=== PATIENT | male | born 2005 | race Caucasian/White ===

== ENCOUNTER 2025-03-18 06:42 | Emergency (ER) | payer OTHER, SELFPAY ==
[2025-03-18 06:53] VITALS: BP 136/92; PULSE 112; RESP 20; TEMP 36.6; O2SAT 100; BMI 22.2
--- NOTE | 2025-03-18 07:12 | ED.GENADULT ---
HPI - General Adult General Chief complaint: Extremity Pain/Injury, Upper Stated complaint: Right index finger injury Time Seen by Provider: 03/18/25 07:12 History of Present Illness HPI narrative: Patient c/o right 2nd digit injury at 2130 last night. Patient shut his finger in a door. Patient has bruising under nail and swelling. 20-year-old young man presenting to the emergency department following an injury to his right index finger. Shut his finger in a heavy door. He does not think it is broken. Has some bleeding underneath the nail. Has experienced this before. Describes poking holes in at by medical care provider which improved his symptoms. Review of Systems Status of ROS: Reports: 6 or more systems reviewed and unremarkable except as noted in History and below PFSH [facility] Social History Smoking Status: Never smoker Do you use any of these nicotine containing products: None Second hand tobacco smoke exposure: No How often do you have a drink containing alcohol: 4 or more times a week How many standard drinks containing alcohol do you have on a typical day: 1 or 2 How often do you have six or more drinks on one occasion: Weekly AUDIT-C Alcohol total score: 7 Non-prescribed substance use: denies use service: No Exam Narrative: Exam Narrative: Very pleasant. Calm. Examination of the right index finger shows proximal nearly half with subungual hematoma. No injury to paronychia. Otherwise does not appear to have injury or deformity to his finger. Const: Vital Signs, click to edit/add: Vital Signs - 24 hr 03/18/25 06:53 Temperature 97.9 F Pulse Rate [Right Pulse Oximeter] 112 H Respiratory Rate 20 Blood Pressure [Ri ght Upper Arm] 136/92 H Pulse Oximetry 100 Oxygen Delivery Me thod Room Air Documenting provider has reviewed patient's vital signs: yes Course Vital Signs Vital signs: Initial Vital Signs Temperature 97.9 F 03/18/25 06:53 Temperature Source Temporal Artery Scan 03/18/25 06:53 Pulse Rate 112 H 03/18/25 06:53 Respiratory Rate 20 03/18/25 06:53 Blood Pressure 136/92 H 03/18/25 06:53 Blood Pressure Mean 106 H 03/18/25 06:53 Blood Pressure Position Sitting 03/18/25 06:53 Pulse Oximetry 100 03/18/25 06:53 Oxygen Delivery Method Room Air 03/18/25 06:53 Vital Signs Temperature 97.9 F 03/18/25 06:53 Pulse Rate 112 H 03/18/25 06:53 Respiratory Rate 03/18/25 06:53 Blood Pressure 136/92 H 03/18/25 06:53 Pulse Oximetry 100 03/18/25 06:53 Oxygen Delivery Method Room Air 03/18/25 06:53 Temperature 97.9 F 03/18/25 06:53 Pulse Rate 112 H 03/18/25 06:53 Respiratory Rate 03/18/25 06:53 Blood Pressure 136/92 H 03/18/25 06:53 Pulse Oximetry 100 03/18/25 06:53 Oxygen Delivery Method Room Air 03/18/25 06:53 Medical Decision Making MDM Narrative Medical decision making narrative: It does appear that has a subungual hematoma. I do not think that there is underlying fracture given lateral pressure to the finger not particular exacerbating pain and lack of palmar bruising. Did offer x-rays but this was declined/deferred. Discussed trephinating. Return with Bovie and easily placed I singular hole in the ulnar side nail resulting in insignificant amount of subacute expressed. Looks like it drained most of the hematoma. Du became a little woozy with all of this. Is not inclined toward interacting with blood. Otherwise tolerated well. Placed fluffed up gauze dressing to facilitate continued drainage if needed. See patient discharge plan for further discussion Ibuprofen, acetaminophen, elevation for comfort. Can probably swap dressing out for Band-Aid later today. Likely will lose this nail but should grow back normally. Trim away as needed. Discharge Plan Discharge Clinical Impression: Subungual hematoma, Crush injury to finger Patient Disposition: Home, Self-Care Condition: Improved Additional Instructions: Ibuprofen, acetaminophen, elevation for comfort. Can probably swap dressing out for Band-Aid later today. Likely will lose this nail but should grow back normally. Trim away as needed. Stand Alone Forms: [facility] Info Instructions
== END 2025-03-18 08:08 | disposition home or self-care (01) ==
PROVIDERS: Emergency Provider Family Medicine
DX: S67.190A Crushing injury of right index finger, initial encounter (principal); W23.0XXA Caught, crushed, jammed, or pinched between moving objects, initial encounter
CPT/HCPCS: 99282; 99283; 99284